=== PATIENT | female | born 1990 | race Caucasian/White ===

== ENCOUNTER → 2016-08-22 | Outpatient (CLI) | payer OTHER ==
[~2016-08-22] MED LIST: CLARITIN,ALAVAR10 MG PO; DEPO-PROVER150 MG/ML IM; MOTRIN600 MG PO; NORCO 5/3251 TABLET PO; PRILOSEC40 MG PO; PROAIR HFA8.5 GM IH; PROMETHAZINE HC25 M1 PO; ROBITUSSIN AC,T10 ML PO; SINGULAIR10 MG PO; VITAMIN D400 UNIT PO
== END | disposition home or self-care (01) ==
LOC: NUC 08:41
DX: K31.84 Gastroparesis (principal)
CPT/HCPCS: 78264; A9541

== ENCOUNTER 2016-12-12 20:23 | Inpatient (IN) | payer OTHER ==
[~2016-12-12] VITALS: Ht 162.6 cm; Wt 80.7 kg
[~2016-12-12 20:23] MED LIST changes: +OMEPRAZOLE40 M1 PO; -PRILOSEC40 MG PO
[2016-12-12 21:08] LABS: MCH 31.4 PG (29.0-34.0); MCHC 33.6 G/DL (30.0-36.0); MCV 93.5 FL (83-99); MEAN PLAT.VOLUME 9.4 uM^3 (9.5-12.4); PLATELET COUNT 226 K/uL (156-360); RBC DIS.WIDTH-CV 12.6 % (11.8-14.6); RBC DIS.WIDTH-SD 43.1 % (39-53); RED BLOOD COUNT 3.85 M/uL (3.80-5.20)
[2016-12-12 21:17] LABS: CHLORIDE 112 mEq/L (99-109); POTASSIUM 3.4 mEq/L (3.7-5.4); SODIUM 141 mEq/L (136-147)
[2016-12-12 21:20] LABS: GLUCOSE 92 mg/dL (70-99)
[2016-12-12 21:21] LABS: ANION GAP 9 MEQ/L (2-14)
[2016-12-12 21:22] LABS: TOTAL BILIRUBIN 0.8 mg/dL (0.0-1.0)
[2016-12-12 21:23] LABS: ALKALINE PHOSPHATASE 69 IU/L (3-129); GFR ESTIMATE (CALCULATED) > 59 mL/min/
[2016-12-12 21:24] LABS: UREA NITROGEN (BUN) 6 mg/dL (9-23)
[2016-12-12 21:34] LABS: QUANTITATIVE HCG < 4.0 MIU/ML
[2016-12-12 22:38] LABS: LIPASE 10 U/L (1.0-51.0)
[2016-12-12 22:55] LABS: ADD MIUA? YES; BILIRUBIN NEGATIVE; BLOOD NEGATIVE; COLOR YELLOW ((YELLOW)); GLUCOSE (STRIP) NEGATIVE; KETONES NEGATIVE; LEUKOCYTES SMALL; NITRITE NEGATIVE; PROTEIN (STRIP) NEGATIVE; SPECIFIC GRAVITY 1.039 (1.000-1.030); UROBILINOGEN 0.2 MG/DL (0.2-1.0)
[2016-12-12 23:08] LABS: BACTERIA NONE SEEN /HPF; EPITHELIAL CELLS 1+ /HPF; MUCUS NONE SEEN /LPF; RED BLOOD CELLS 0-5 /HPF (0-5); UCUL ADDED? NO
[2016-12-13] VITALS (8 sets, daily range): BP systolic 89–119; BP diastolic 50–72
[2016-12-13] MEDS ORDERED: PROVENTIL,2.5 MG/3 M IH (14:51)
[2016-12-13] MEDS ORDERED: FLONASE16 G1 BOTH NARES (14:54)
[2016-12-13] MEDS ORDERED: TRIAMCINOLONE A15 GM TP (14:58)
[2016-12-13] MEDS ORDERED: SYMBICORT60 INHALA1 IH (14:59)
[2016-12-13] MEDS ORDERED: DOMP10T PO (15:07)
[2016-12-13] MEDS ORDERED: EPIPEN JR.0.15 MG/0. IM (15:10)
[2016-12-14] VITALS (8 sets, daily range): BP systolic 81–105; BP diastolic 51–68
[2016-12-15 03:48] VITALS: BP 92/58
[2016-12-15 06:05] LABS: HEMATOCRIT 38.4 % (36.0-46.0); MCH 31.8 PG (29.0-34.0); MCHC 33.1 G/DL (30.0-36.0); MCV 96.2 FL (83-99); MEAN PLAT.VOLUME 9.8 uM^3 (9.5-12.4); PLATELET COUNT 215 K/uL (156-360); RBC DIS.WIDTH-CV 13.1 % (11.8-14.6); RED BLOOD COUNT 3.99 M/uL (3.80-5.20); WHITE BLOOD COUNT 4.7 K/uL (4.1-10.2)
[2016-12-15 06:33] LABS: ANION GAP 9 MEQ/L (2-14); CHLORIDE 112 MEQ/L (99-109); GFR ESTIMATE (CALCULATED) > 59 mL/min/; GLUCOSE 79 mg/dL (70-99); SAMPLE HEMOLYSIS CHECK 0; SAMPLE ICTERIC CHECK 0; SAMPLE LIPEMIA CHECK 0; SODIUM 141 MEQ/L (136-147); UREA NITROGEN (BUN) 5 mg/dL (9-23)
[2016-12-15 06:59] LABS: POTASSIUM 4.3 MEQ/L (3.7-5.4)
[2016-12-15 07:38] VITALS: BP 117/76
[2016-12-15 11:28] VITALS: BP 92/53
[2016-12-15 16:01] VITALS: BP 116/76
[2016-12-15 17:50] LABS: ADD MIUA? NO; BILIRUBIN NEGATIVE; BLOOD NEGATIVE; COLOR STRAW ((YELLOW)); GLUCOSE (STRIP) NEGATIVE; KETONES 20; LEUKOCYTES NEGATIVE; NITRITE NEGATIVE; PROTEIN (STRIP) NEGATIVE; SPECIFIC GRAVITY 1.005 (1.000-1.030); UROBILINOGEN 0.2 MG/DL (0.2-1.0)
[2016-12-15] MEDS ORDERED: GUAIFENESIN WI120 ML PO (18:06)
[2016-12-15] MEDS ORDERED: TOPAMAX25 MG PO (18:06)
[2016-12-15] MEDS ORDERED: MOTRIN600 MG PO (18:07)
[2016-12-15 18:59] VITALS: BP 98/54
[2016-12-15 22:40] VITALS: BP 89/54
[2016-12-16 03:17] VITALS: BP 88/55
[2016-12-16 07:15] VITALS: BP 91/50
[2016-12-16 11:45] VITALS: BP 111/65
[2016-12-16 15:15] VITALS: BP 117/79
[2016-12-16 19:06] VITALS: BP 100/58
[2016-12-16 22:43] VITALS: BP 108/58
[2016-12-17] VITALS (7 sets, daily range): BP systolic 89–145; BP diastolic 46–65
[2016-12-18 03:50] VITALS: BP 93/55
[2016-12-18 06:48] LABS: HEMATOCRIT 34.3 % (36.0-46.0); MCH 32.3 PG (29.0-34.0); MCHC 34.1 G/DL (30.0-36.0); MCV 94.8 FL (83-99); MEAN PLAT.VOLUME 10.1 uM^3 (9.5-12.4); PLATELET COUNT 266 K/uL (156-360); RED BLOOD COUNT 3.62 M/uL (3.80-5.20); WHITE BLOOD COUNT 6.7 K/uL (4.1-10.2)
[2016-12-18 07:07] LABS: ALKALINE PHOSPHATASE 45 IU/L (3-129); ANION GAP 8 MEQ/L (2-14); CHLORIDE 107 MEQ/L (99-109); GFR ESTIMATE (CALCULATED) > 59 mL/min/; GLUCOSE 138 mg/dL (70-99); POTASSIUM 4.2 MEQ/L (3.7-5.4); SAMPLE HEMOLYSIS CHECK 0; SAMPLE ICTERIC CHECK 0; SAMPLE LIPEMIA CHECK 0; SODIUM 140 MEQ/L (136-147); TOTAL BILIRUBIN 0.4 MG/DL (0.0-1.0); UREA NITROGEN (BUN) 12 mg/dL (9-23)
[2016-12-18 08:12] VITALS: BP 130/70
[2016-12-18 10:56] VITALS: BP 118/61
[2016-12-18 16:10] VITALS: BP 111/70
[2016-12-18 20:21] VITALS: BP 110/66
[2016-12-18 23:09] VITALS: BP 110/72
[2016-12-19 04:10] VITALS: BP 116/66
[2016-12-19 07:26] VITALS: BP 113/61
[2016-12-19 10:48] VITALS: BP 123/72
[2016-12-19 15:48] VITALS: BP 121/58
[2016-12-19] MEDS ORDERED: LEVOFLOXACIN750 MG PO (16:37)
[2016-12-19] MEDS ORDERED: DUONEB 2.5-0.5 M3 ML PEP (16:45)
[2016-12-19] MEDS ORDERED: PREDNISONE20 MG PO (16:46)
== END 2016-12-19 17:53 | disposition home or self-care (01) | DRG 194 ==
LOC: EME → EDBD 20:23 → EME 20:23 → 5EAST 12-13 01:41 → EDOF 12-13 01:41 → ENRESERV 12-13 01:47 → 5EAST 12-13 03:58 → UNDODEPER 12-13 04:05 → 5EAST 12-13 20:29
PROVIDERS: Family Medicine; Internal Medicine
DX: J18.9 Pneumonia, unspecified organism (principal); N39.0 Urinary tract infection, site not specified; Q90.9 Down syndrome, unspecified; K31.84 Gastroparesis; J06.9 Acute upper respiratory infection, unspecified; E87.6 Hypokalemia; F70 Mild intellectual disabilities; G47.33 Obstructive sleep apnea (adult) (pediatric); E66.9 Obesity, unspecified; J45.909 Unspecified asthma, uncomplicated; E87.70 Fluid overload, unspecified; Z66 Do not resuscitate; Z93.1 Gastrostomy status; Z68.30 Body mass index [BMI] 30.0-30.9, adult; Z90.49 Acquired absence of other specified parts of digestive tract; Z82.49 Family history of ischemic heart disease and other diseases of the circulatory system
CPT/HCPCS: 71010; 71020; 74000; 74177; 80048; 80053; 80202; 81003; 82948; 83605; 83690; 83880; 84702; 85027; 87040; 87081; 87493; 87506; 87651 90; 93005; 94640; 94640 76; 94660; 94667; 94799; 99202; 99281; 99285; J1650; J1956; J2405; J2765; J2930; J3010; J3370; J3480; J7030; J7512; Q0169

== ENCOUNTER 2018-01-11 10:12 | Emergency (ER) | payer OTHER ==
[~2018-01-11] VITALS: Ht 144.8 cm; Wt 79.0 kg
[~2018-01-11 10:12] MED LIST changes: +DOMP10T PO; +DUONEB 2.5-0.5 M3 ML PEP; +EPIPEN JR.0.15 MG/0. IM; +FLONASE16 G1 BOTH NARES; +GUAIFENESIN WI120 ML PO; +LEVOFLOXACIN750 MG PO; +PREDNISONE20 MG PO; +PROVENTIL,2.5 MG/3 M IH; +SYMBICORT60 INHALA1 IH; +TOPAMAX25 MG PO; +TRIAMCINOLONE A15 GM TP
[2018-01-11 11:25] LABS: APPEARANCE CLEAR ((CLEAR)); BILIRUBIN NEGATIVE; BLOOD NEGATIVE; COLOR STRAW ((YELLOW)); GLUCOSE (STRIP) NEGATIVE; KETONES NEGATIVE; LEUKOCYTES SMALL; NITRITE NEGATIVE; PROTEIN (STRIP) NEGATIVE; SPECIFIC GRAVITY 1.006 (1.000-1.030); UROBILINOGEN 0.2 MG/DL (0.2-1.0)
[2018-01-11 11:29] LABS: BACTERIA 1+ /HPF; EPITHELIAL CELLS 1+ /HPF; MUCUS TRACE /LPF; RED BLOOD CELLS 0-5 /HPF (0-5)
[2018-01-11 11:54] LABS: HEMATOCRIT 46.9 % (36.0-46.0); HEMOGLOBIN 16.2 G/DL (11.9-15.5); MCH 32.6 PG (29.0-34.0); MCHC 34.5 G/DL (30.0-36.0); MCV 94.4 FL (83-99); PLATELET COUNT 181 K/uL (156-360); RBC DIS.WIDTH-CV 12.4 % (11.8-14.6); RBC DIS.WIDTH-SD 42.9 % (39-53); RED BLOOD COUNT 4.97 M/uL (3.80-5.20); WHITE BLOOD COUNT 9.7 K/uL (4.1-10.2)
[2018-01-11 12:04] LABS: CHLORIDE 110 mEq/L (99-109); POTASSIUM 4.5 mEq/L (3.7-5.4); SODIUM 140 mEq/L (136-147)
[2018-01-11] MEDS ORDERED: PYRIDIUM100 MG PO (12:05)
[2018-01-11] MEDS ORDERED: CIPRO500 MG PO (12:05)
[2018-01-11 12:06] LABS: GLUCOSE 95 mg/dL (70-99)
[2018-01-11 12:09] LABS: CREATININE 1.1 mg/dL (0.6-1.3); GFR ESTIMATE (CALCULATED) > 59 mL/min/
[2018-01-11 12:10] LABS: UREA NITROGEN (BUN) 11 mg/dL (9-23)
[2018-01-11 15:09] VITALS: BP 106/76
== END 2018-01-11 15:15 | disposition home or self-care (01) ==
LOC: EME 10:12
PROVIDERS: Family Medicine
DX: N12 Tubulo-interstitial nephritis, not specified as acute or chronic (principal); Q90.9 Down syndrome, unspecified; K21.9 Gastro-esophageal reflux disease without esophagitis; J45.909 Unspecified asthma, uncomplicated; G43.909 Migraine, unspecified, not intractable, without status migrainosus; Z88.1 Allergy status to other antibiotic agents
CPT/HCPCS: 80048; 81003; 85027; 99281; 99284